=== PATIENT | female | born 1955 | race Caucasian/White ===

== ENCOUNTER → 2020-06-17 13:00 | Outpatient (CLI) | payer OTHER, SELFPAY ==
--- NOTE | 2020-06-17 | DI.MRI.S_ITS ---
PROCEDURE: MR SHOULDER RT WO CON INDICATIONS: IMPINGEMENT SYNDROME OF RIGHT SHOULDER TECHNIQUE: Noncontrast oblique coronal T2 fast spin echo with fat saturation, oblique sagittal T1 spin echo and T2 fast spin echo with fat saturation, axial T1 spin echo and T2 fast spin echo with fat saturation through the shoulder. COMPARISON: None. FINDINGS: Image quality: Excellent. Rotator cuff: There is full-thickness rupture of most anterior fibers of distal supraspinatus approximately 5 millimeters from its insertion on the humeral head and up to 6 millimeter medial retraction of torn tendon fibers. Fluid-filled gap also measures 1 centimeter in AP dimension. Tendinosis and moderate grade articular surface partial-thickness tear involving mid to posterior fibers of distal supraspinatus is seen. Distal infraspinatus tendinosis and low-grade articular surface partial-thickness tear is also noted. Distal subscapularis tendon is grossly intact. Sagittal images demonstrate mild supraspinatus muscle atrophy. Bones and bursae: No bone marrow contusions or fractures. Moderate acromioclavicular joint osteoarthritic changes are seen with downward osteophyte formation depressing the musculotendinous junction of supraspinatus. There is moderate amount of joint effusion and subacromial subdeltoid bursal fluid. Capsule and soft tissues: In the absence of intra-articular contrast, there is suggestion of superior anterior labral tear at 1 to 2 o'clock position. The glenohumeral ligaments appear intact. The long head of the biceps tendinosis is seen. The rotator interval appears normal, without fibrosis. The coracohumeral ligament is normal in thickness. IMPRESSION: 1. Full-thickness rupture involving most anterior fibers of distal supraspinatus approximately 5 millimeter from its insertion on the humeral head with up to 6 millimeter medial retraction of torn tendon fibers and a fluid-filled gap measures 1 cm in AP dimension. 2. Tendinosis and moderate grade articular surface partial-thickness tear involving rest of the supraspinatus. Tendinosis and low-grade articular surface partial-thickness tear involving distal infraspinatus. Mild supraspinatus muscle atrophy. 3. Moderate acromioclavicular joint osteoarthritis. Moderate amount of joint effusion and subacromial subdeltoid bursal fluid. 4. Suggestion of superior anterior labral tear 1 to 2 o'clock position. 5. Proximal intra-articular portion of long head of biceps tendinosis. Dictated by: Santos Fitch M.D. on 06/17/2020 at 13:46 Approved by: Santos Fitch M.D. on 06/17/2020 at 13:49
== END ==
PROVIDERS: PCP Family Medicine; Referring Provider Physical Medicine & Rehabilitation Pain Medicine; Visit Provider Physical Medicine & Rehabilitation Pain Medicine
DX: M75.41 Impingement syndrome of right shoulder (principal); M75.121 Complete rotator cuff tear or rupture of right shoulder, not specified as traumatic; M19.011 Primary osteoarthritis, right shoulder
CPT/HCPCS: 73221

== ENCOUNTER → 2025-01-30 13:52 | Outpatient (CLI) | payer OTHER, SELFPAY ==
--- NOTE | 2025-01-30 13:57 | DI.RAD.S_ITS ---
PROCEDURE: ORTHO-XR FOOT 3V WB LEFT COMPARISON: None. INDICATIONS: BUNION FINDINGS: Bones: Moderate hallux valgus congenital foreshortening 1st metatarsal and pes planus noted. Slight hammertoe deformities 2nd through 5th digits. Joints: Mild degeneration 1st MTP and 2nd through 5th interphalangeal joints Soft tissues: No soft tissue abnormality. IMPRESSION: Moderate hallux valgus and other chronic findings Dictated by: Trev Alexandra M.D. on 01/31/2025 at 12:07 Approved by: Trev Alexandra M.D. on 01/31/2025 at 12:08
--- NOTE | 2025-01-30 13:57 | DI.RAD.S_ITS ---
PROCEDURE: ORTHO-XR FOOT 3V WB RIGHT INDICATIONS: BUNION TECHNIQUE: 3 weight-bearing views acquired of the foot. COMPARISON: None. FINDINGS: Bones: Mild congenital foreshortening 1st metatarsal , mild hammertoe deformities 1st through 5th digits mild hallux valgus noted. Joints: Mild degeneration 1st MTP and 2nd through 5th interphalangeal joints as well throughout the midfoot Soft tissues: Mild diffuse soft tissue swelling. IMPRESSION: Chronic findings Dictated by: Trev Alexandra M.D. on 01/31/2025 at 12:08 Approved by: Trev Alexandra M.D. on 01/31/2025 at 12:09
== END ==
LOC: RAD 13:54
PROVIDERS: PCP Family Medicine; Referring Provider Podiatrist Foot & Ankle Surgery; Visit Provider Podiatrist Foot & Ankle Surgery
DX: M21.612 Bunion of left foot (principal); M20.12 Hallux valgus (acquired), left foot; M21.42 Flat foot [pes planus] (acquired), left foot; M20.42 Other hammer toe(s) (acquired), left foot; M21.611 Bunion of right foot; M20.11 Hallux valgus (acquired), right foot; M20.41 Other hammer toe(s) (acquired), right foot; M79.89 Other specified soft tissue disorders
CPT/HCPCS: 73630